=== PATIENT | male | born 1965 | race Caucasian/White ===

== ENCOUNTER 2022-11-08 17:06 | Emergency (ER) | payer SELFPAY ==
[~2022-11-08] VITALS: Ht 180.3 cm; Wt 127.0 kg
[2022-11-08 17:10] VITALS: BP 160/90
[2022-11-08] MEDS ORDERED: IBUP-2213 PO (19:35)
[2022-11-08 19:50] VITALS: BP 160/90
== END 2022-11-08 19:50 | disposition home or self-care (01) ==
LOC: MED 17:06
DX: M25.562 Pain in left knee (principal); Z79.899 Other long term (current) drug therapy
CPT/HCPCS: 99283

== ENCOUNTER 2023-04-06 18:13 | Emergency (ER) | payer MEDICAID ==
[~2023-04-06] VITALS: Ht 175.3 cm; Wt 83.9 kg
[~2023-04-06 18:13] MED LIST: IBUP-2213 PO
[2023-04-06 18:16] VITALS: BP 160/99; PULSE 87; RESP 17; TEMP 97.6; O2SAT 97
[2023-04-06] MEDS ORDERED: LISI5TAB18 PO ×2 (22:26→23:41)
[2023-04-06] MEDS ORDERED: IBUP-2213 PO ×2 (22:26→23:41)
[2023-04-06] MEDS ORDERED: METF-346 PO ×2 (22:26→23:41)
[2023-04-06 22:36] VITALS: BP 160/99; PULSE 87; RESP 17; TEMP 97.6; O2SAT 97
== END 2023-04-06 22:36 | disposition home or self-care (01) ==
LOC: MED 18:13
DX: M79.671 Pain in right foot (principal); M79.672 Pain in left foot; I10 Essential (primary) hypertension; Z79.899 Other long term (current) drug therapy
CPT/HCPCS: 99283